=== PATIENT | female | born 2005 | race Hispanic/Latino ===

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

== ENCOUNTER 2024-09-04 13:17 | Emergency (ER) | payer SELFPAY ==
[~2024-09-04] VITALS: Ht 142.2 cm; Wt 35.4 kg
[~2024-09-04 13:17] MED LIST: CLIN-141 PO; IBUP-2077 PO
--- NOTE | 2024-09-04 14:51 | HMCIMG ---
Exam Type: US OB <14 WEEKS Clinical Information: ABD PAIN Comparison: None FINDINGS: There is an intrauterine gestational sac. Gestational sac diameter is 0.56 cm , corresponds to 5 weeks 3 days. No embryonic pole or yolk sac seen at this time. The uterus is anteverted with normal shape. It measures 7 x 4.2 x 4.5 cm in its maximum length, anteroposterior and transverse dimensions. The myometrium is homogeneous and there is no evidence of focal or diffuse lesions. The right ovary is obscured. Left ovary is unremarkable. No adnexal masses. No free fluid or collections. Urinary bladder appears normal. IMPRESSION: Intrauterine gestational sac, with diameter corresponding to a gestational age of 5 weeks 3 days. No embryonic pole or yolk sac seen at this time. Consider short-term follow-up to confirm viability.
--- NOTE | 2024-09-04 14:56 | ERN ---
ED Note History of Present Illness Stated Complaint: CRAMPING Chief Complaint: Abdominal Pain in Time Seen by MD: 13:22 Dictation: History of present illness: 19-year-old female with no significant past medical history except for? Heart murmur in childhood presented to ED with complaints of lower abdominal cramps for past 2 weeks. As per the patient she had irregular periods and she thought it could be menstrual cramps. Her abdominal pain increased in intensity yesterday to 02/27. She was tested positive in home kit 2 days back. She is not sure of her last menstrual period date. She denies nausea, vomiting, dysuria, fever, vaginal spotting or discharge. She denies any history of allergies, smoking history, alcohol history or drug abuse. At the time of presentation she was hemodynamically stable. Allergies: Coded Allergies: No Known Allergies (Unverified Allergy, Unknown, 11/24/23) Home Meds Active Scripts Ibuprofen (Ibuprofen 800 mg Tab) 800 Mg Tab, 800 MG PO Q6H PRN for PAIN, #30 TAB Prov:LAURA BRADY 11/25/23 Clindamycin HCl (Clindamycin HCl) 300 Mg Capsule, 300 MG PO TID for 7 Days, #21 CAP Prov:LAURA BRADY 11/25/23 Past Medical History Past Medical History: No Pertinent History Surgical History: None : 1 Para: 0 Aborts: 0 Review of System Dictation REVIEW OF SYSTEMS Positive for lower abdominal cramps CONSTITUTIONAL: Denies fevers, chills, or night sweats. No unintentional weight loss reported. ENT: No hearing loss, otalgia, otorrhea, rhinitis, rhinorrhea, hoarseness, or sore throat. CARDIOVASCULAR: Denies any exertional angina, dyspnea on exertion, orthopnea, paroxysmal nocturnal dyspnea, palpitations claudication. PULMONARY: Denies any shortness of breath, cough, phlegm / sputum, hemoptysis, pleuritic chest pain. SLEEP: Denies morning headaches, daytime somnolence or napping. Denies difficulty falling asleep, staying asleep, waking from sleep. Denies knowledge of snoring. GASTROINTESTINAL: Denies any type of dysphagia to either liquids or solids. Denies nausea, vomiting, abdominal pain, diarrhea, constipation, blood in stools . NEUROLOGICAL: Denies headache, motor weakness, sensory deficit, vertigo / spinning sensation, gait abnormalities, or tremors. GENITOURINARY: Denies frequency, urgency, nocturia, hematuria or incontinence, low urinary stream, straining to void, urinary intermittency or hesitancy ENDOCRINOLOGY: Denies polyuria, polydipsia, polyphagia or heat / cold intolerance. HEMATOLOGY: Denies thrombophilia / previous clots, or coagulopathy / bleeding disorders. ONCOLOGIC: Denies personal history of malignancy. DERMATOLOGIC: Denies rashes or pruritus. PSYCHIATRIC: Denies any suicidal or homicidal ideation. Denies hallucinations. Initial Vital Sign VS Vital Signs Date Time Temp Pulse Resp B/P (MAP) Pulse Ox O2 Delivery O2 Flow Rate FiO2 09/04/24 13:28 97.7 94 16 142/76 97 Room Air 09/04/24 16:46 0 21 Physical Exam Dictation PHYSICAL EXAM GENERAL APPEARANCE: Well nourished . Awake and alert. Oriented to time, place and person. No acute cardiopulmonary distress. HEENT: Head normocephalic , atraumatic. Sclera anicteric . Pupils are round and reactive. Extraocular movements intact . No conjunctival injection. No nasal congestion. No throat congestion .Oral mucosa moist. NECK: Supple. No JVD. No thyromegaly. No submental, submandibular, pre- /postauricular, occipital or supraclavicular lymphadenopathy. No carotid bruits. CHEST: Normal chest expansion. No Telemetry. LUNGS: Clear to auscultation bilaterally . No rales, rhonchi or any wheezing. Equal tactile fremitus. Resonant to percussion . CARDIOVASCULAR: Regular rate and rhythm. S1 and S2 normal. No rubs, murmurs or gallops. ABDOMEN: Mild tenderness in the hypogastric region. Soft, and nondistended. There is no rebound tenderness, voluntary guarding, or rigidity. No hepatosplenomegaly. Bowel sounds normal in all four quadrants . NEUROLOGICAL: Cranial nerves II-XII grossly intact. Motor is 5/5 in bilateral upper and lower extremities . No sensory deficits. EXTREMITIES: No edema, No cyanosis , No clubbing. Good capillary refill. SKIN: No skin breakdown. No rashes or lesions . PSYCHIATRY: Normal affect .No auditory or visual hallucinations. Normal speech. No dysarthria. Results (Laboratory/Radiology) Laboratory/Radiology Laboratory Tests Test 09/04/24 14:40 White Blood Count 6.3 K/uL (4.8-10.8) Red Blood Count 3.96 MIL/uL (4.00-5.50) L Hemoglobin 12.8 g/dL (12.0-16.0) Hematocrit 36.7 % (36-48) Mean Corpuscular Volume 92.7 fL (80-100) Mean Corpuscular Hemoglobin 32.3 pg (27.0-33.0) Mean Corpuscular Hemoglobin Concent 34.9 g/dL (32.0-36.0) Red Cell Distribution Width 12.0 % (11.0-15.5) Platelet Count 249 K/uL (130-400) Mean Platelet Volume 10.0 fL (7.5-10.5) Immature Granulocyte % (Auto) 0.3 % (0-1) Neutrophils (%) (Auto) 64.1 % (40.0-77.0) Lymphocytes (%) (Auto) 25.7 % (21.0-51.0) Monocytes (%) (Auto) 8.8 % (3.0-13.0) Eosinophils (%) (Auto) 0.6 % (0.0-8.0) Basophils (%) (Auto) 0.5 % (0.0-5.0) Neutrophils # (Auto) 4.0 K/uL (1.8-7.7) Lymphocytes # (Auto) 1.6 K/uL (1.0-4.8) Monocytes # (Auto) 0.6 K/uL (0.1-1.0) Eosinophils # (Auto) 0.04 K/uL (0.00-0.70) Basophils # (Auto) 0.03 K/uL (0.00-0.20) Absolute Immature Granulocyte (auto 0.02 K/uL (0-1) Nucleated Red Blood Cells 0.0 % (0.0-0.19) Urine Color LIGHT-YELLOW (YELLOW) Urine Appearance CLEAR (CLEAR) Urine pH 6.0 (5.0-8.0) Urine Specific [place] 1.025 (1.001-1.031) Urine Protein NEGATIVE mg/dL (NEGATIVE) Urine Glucose (UA) NEGATIVE mg/dL (NEGATIVE) Urine Ketones 20 mg/dL (NEGATIVE) H Urine Occult Blood NEGATIVE (NEGATIVE) Urine Nitrate NEGATIVE (NEGATIVE) Urine Bilirubin NEGATIVE mg/dL (NEGATIVE) Urine Urobilinogen 0.2 mg/dL (0.2-1.0) Urine Leukocyte Esterase NEGATIVE [place]/uL Urine RBC 2-5 /HPF (0-1) H Urine WBC 2-5 /HPF (0-1) H Urine Squamous Epithelial Cells FEW /HPF (0-2) Urine Bacteria RARE /HPF (None Seen) Urine HCG, Qualitative POSITIVE (NEGATIVE) H Sodium Level 132 mmol/L (136-145) L Potassium Level 3.6 mmol/L (3.5-5.1) Chloride Level 99 mmol/L (101-111) L Carbon Dioxide Level 26 mmol/L (21-32) Blood Urea Nitrogen 10 mg/dL (7-18) Creatinine 0.5 mg/dL (0.5-1.0) Glomerular Filtration Rate Calc 138 mL/min (>90) Random Glucose 82 mg/dL (70-105) Total Calcium 9.2 mg/dL (8.5-10.1) Human Chorionic Gonadotropin, Quant 6767 mIU/mL (0-5) H Ultrasound Comment: PROCEDURE: OB <14 - US OB <14 WEEKS Exam Type: US OB <14 WEEKS Clinical Information: ABD PAIN Comparison: None FINDINGS: There is an intrauterine gestational sac. Gestational sac diameter is 0.56 cm , corresponds to 5 weeks 3 days. No embryonic pole or yolk sac seen at this time. The uterus is anteverted with normal shape. It measures 7 x 4.2 x 4.5 cm in its maximum length, anteroposterior and transverse dimensions. The myometrium is homogeneous and there is no evidence of focal or diffuse lesions. The right ovary is obscured. Left ovary is unremarkable. No adnexal masses. No free fluid or collections. Urinary bladder appears normal. IMPRESSION: Intrauterine gestational sac, with diameter corresponding to a gestational age of 5 weeks 3 days. No embryonic pole or yolk sac seen at this time. Consider short-term follow-up to confirm viability. DICTATED BY: ELLIOT DALEY MD DATE: 09/04/24 1445 ELECTRONICALLY SIGNED BY: ELLIOT DALEY MD DATE: 09/04/24 1451 ED Course ED Course Orders Procedure Category Date Status Time Cbc With Differential LAB 09/04/24 Complete 13:58 Basic Metabolic Panel LAB 09/04/24 Complete 13:58 Urinalysis LAB 09/04/24 Complete W/Microscopic 13:58 ,Urine Test LAB 09/04/24 Complete 13:58 Hcg,Quantitative LAB 09/04/24 Complete 13:58 Us Ob <14 Weeks US 09/04/24 Resulted 13:58 Vital Signs Date Time Temp Pulse Resp B/P (MAP) Pulse Ox O2 Delivery O2 Flow Rate FiO2 09/04/24 16:46 97.9 85 18 115/76 100 Room Air* 0 21 09/04/24 13:28 97.7 94 16 142/76 97 Room Air Medical Decision Making MDM Differential diagnosis : EARLY , THREATENED , URINARY TRACT INFECTION Rationale: Tests considered and ordered secondary to shared decision making include: I will re-evaluate the patient after treatment and diagnostic exams have returned to determine whether they require further testing, can be safely dis charged home, or need admission for further treatment and evaluation. Given the social determinants of health affecting care, including literacy, access to medical care, prescription drug management, and [id number] drugs, I will ensure that treatment plans are tailored accordingly. There are no social concerns with this patient. Risk of complication and/or morbidity or mortality of patient management: None Need for hospitalization: Patient does not meet criteria for hospitalization. Need for emergency major/minor surgery: No Prescription drug management Prescriptions will include symptomatic care Medications-Per medication reconciliation Previous outside records reviewed: Old ER visits. Patient's prior external medical records from other ER visits were reviewed by me as indicated. Prior testing and results from previous visits were reviewed. Prior tests were taken into account with medical decision making and resource utilization, independent historian/historians were used to obtain complete [facility] history. I independently interpreted the test that were performed, results were reviewed by me and considered findings on radiology. Medical management and examination interpretation discussions was done by me with other qualified healthcare professionals as indicated for the patient's care. Revaluation: HER INITIAL BLOOD PRESSURE WAS 142/76 MMHG.. HER LABS WERE UNREMARKABLE. HER QUANTITATIVE BETA HCG WAS 6767. URINE NEGATIVE FOR INFECTION. ULTRASOUND ABDOMEN SHOWED A GESTATIONAL SAC WITH NO DEFINITE EMBRYONIC POLE AT THIS TIME. Disposition : DISCHARGE HOME DX & DISP Disposition: Discharge Departure Impression: Primary Impression: , threatened, early Condition: Stable Additional Instructions: Your urine test was positive the ultrasound abdomen showed a gestational sac. 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 Avoid sexual activity for time being. Avoid unnecessary medications. Refrain from alcohol, smoking, caffeine or drugs. Increase oral hydration. Return to your nearest emergency room if symptoms worsen or if there is no impr ovement. Call 911 if you need immediate assistance. Referrals: SELF,REFERRAL (PCP) EMILE BAUM MD I WAS PRESENT AND PARTICIPATED IN THE CARE OF THIS PATIENT ALONGSIDE WITH THE RESIDENT PHYSICIAN. I HAVE REVIEWED AND PERSONALLY MADE AND APPROVED THE MANAGEMENT PLAN THAT IS DOCUMENTED IN THE NOTE BY MYSELF WITH THE RESIDENT PHYSICIAN. I ACKNOWLEDGED FOR RESPONSIBILITY FOR THE PATIENT'S MANAGEMENT PLAN. LATRICE WAKEFIELD MD Sep 04, 2024 14:56 BERNY ANDREW MD Sep 05, 2024 09:14
[2024-09-04 14:57] LABS: BASOPHILS # (AUTO) 0.03 K/uL (0.00-0.20); BASOPHILS % (AUTO) 0.5 % (0.0-5.0); EOSINOPHILS # (AUTO) 0.04 K/uL (0.00-0.70); EOSINOPHILS % (AUTO) 0.6 % (0.0-8.0); HEMATOCRIT 36.7 % (36-48); IMMATURE GRANULOCYTE ABSOLUTE 0.02 K/uL (0-1); LYMPHOCYTES # (AUTO) 1.6 K/uL (1.0-4.8); LYMPHOCYTES % (AUTO) 25.7 % (21.0-51.0); MEAN CORPUSCULAR HEMOGLOBIN 32.3 pg (27.0-33.0); MEAN CORPUSCULAR HGB CONC 34.9 g/dL (32.0-36.0); MEAN CORPUSCULAR VOLUME 92.7 fL (80-100); MONOCYTES # (AUTO) 0.6 K/uL (0.1-1.0); MONOCYTES % (AUTO) 8.8 % (3.0-13.0); NEUTROPHILS % (AUTO) 64.1 % (40.0-77.0); PLATELET COUNT (AUTO) 249 K/uL (130-400); RED BLOOD CELL COUNT(AUTO) 3.96 MIL/uL (4.00-5.50); WHITE BLOOD COUNT (AUTO) 6.3 K/uL (4.8-10.8)
[2024-09-04 15:10] LABS: CREATININE 0.5 mg/dL (0.5-1.0); POTASSIUM 3.6 mmol/L (3.5-5.1)
[2024-09-04 15:14] LABS: APPEARANCE,URINE CLEAR (CLEAR); BILIRUBIN,URINE NEGATIVE (NEGATIVE); COLOR,URINE LIGHT-YELLOW (YELLOW); GLUCOSE, URINE (UA) NEGATIVE (NEGATIVE); KETONES,URINE 20 mg/dL (NEGATIVE); LEUKOCYTE ESTERASE ,URINE NEGATIVE Leu/uL (NEGATIVE); NITRATE,URINE NEGATIVE (NEGATIVE); OCCULT BLOOD,URINE NEGATIVE (NEGATIVE); PROTEIN,URINE NEGATIVE (NEGATIVE); UROBILINOGEN,URINE 0.2 mg/dL (0.2-1.0)
[2024-09-04 15:18] LABS: HCG,QUALITATIVE URINE POSITIVE (NEGATIVE)
[2024-09-04 15:19] LABS: BACTERIA,URINE RARE /HPF (None Seen); MUCUS,URINE FEW LPF (None Seen); SQUAMOUS EPITHELIAL CELL,UR FEW /HPF (0-2)
[2024-09-04 16:46] VITALS: BP 115/76; PULSE 85; RESP 18; TEMP 97.9; O2SAT 100
== END 2024-09-04 16:47 | disposition home or self-care (01) ==
LOC: EDH 13:17
DX: O20.0 Threatened abortion (principal); Z3A.00 Weeks of gestation of pregnancy not specified; Z79.899 Other long term (current) drug therapy
CPT/HCPCS: 36415; 76801; 80048; 81001; 81025; 84702; 85025; 99284